=== PATIENT | female | born 1960 | race Caucasian/White ===

== ENCOUNTER 2017-05-21 13:26 | Emergency (ER) | payer OTHER ==
[~2017-05-21] VITALS: Ht 165.1 cm; Wt 59.0 kg
[2017-05-21 15:00] VITALS: BP 155/93
== END 2017-05-21 15:48 | disposition home or self-care (01) ==
LOC: ER 14:35
DX: H11.32 Conjunctival hemorrhage, left eye (principal)
CPT/HCPCS: 99282